=== PATIENT | female | born 1950 | race Caucasian/White ===

== ENCOUNTER 2017-03-19 19:14 | Emergency (ER) | payer MEDICARE ==
[2017-03-19] MEDS ORDERED: traMADol HCl 50 MG TAB ONE (19:56)
--- NOTE | 2017-03-19 22:15 | RAD ---
FOUR VIEWS LEFT ELBOW 03/19/17 HISTORY: Left elbow injury after tripping and falling on a curb. FINDINGS: There is what appears to be a lytic lesion involving the proximal left radial diaphysis which extends to the region of the radial neck. There is no osseous destruction or expansion of the bone in the re gion of this lytic lesion. No additional lytic lesions are seen. There is no acute fracture or disloc ation identified. IMPRESSION: 1. Lytic lesion involving the proximal left radial diaphysis. While the overall length of this l esion without expansion or bone destruction suggests a benign process like fibrous dysplasia, given t he age of the patient, further evaluation with a bone scan is recommended. 2. No acute fracture or dislocation left elbow. POS: [facility]
== END 2017-03-19 21:29 | disposition home or self-care (01) ==
LOC: SCSER 19:14
DX: S50.02XA Contusion of left elbow, initial encounter (principal); E78.5 Hyperlipidemia, unspecified; W01.10XA Fall on same level from slipping, tripping and stumbling with subsequent striking against unspecified object, initial encounter

== ENCOUNTER 2017-06-22 07:54 | Outpatient (CLI) | payer MEDICARE, BC ==
--- NOTE | 2017-06-22 10:44 | MRI ---
MRI LEFT WRIST WITHOUT CONTRAST: Date: 06/22/17 HISTORY: Fall in March 2017, landed on left wrist, having pain. Hearing a popping sound. COMPARISON: None. FINDINGS: Bones: There is edema within the distal ulna, appearing mildly in the ulnar styloid. There is narrowing of t he radiocarpal joint. Positive ulnar variance. There is degenerative disease of the scaphotrapezium and scaphotrapezoidal joint. There are subchondr al cysts of the lunate and triquetrum with cortical thinning. Triangular Fibrocartilage: There is central perforation and maceration of the triangular fibrocartilage. There is subsequent doe ate and ulnar chondromalacia and ulnar carpal arthritis. Tendons: No significant tenosynovitis of the flexor tendons. The extensor carpal ulnaris has mild tenosynoviti s at the level of the ulnar groove with thickened subsheath. Muscles: Normal muscle signal and bulk. IMPRESSION: 1. 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 This is likely cause of patient's pain. 2. Moderate size distal radial ulnar joint effusion. 3. Mild tenosynovitis of extensor carpal ulnaris with thickened of the subsheath, likely chronic tea r. POS: [facility]
== END 2017-06-22 07:55 | disposition home or self-care (01) ==
LOC: SCSMRI 07:54
PROVIDERS: ATTEND Orthopaedic Surgery Hand Surgery
DX: S63.502A Unspecified sprain of left wrist, initial encounter (principal); M25.531 Pain in right wrist; M25.832 Other specified joint disorders, left wrist; M94.232 Chondromalacia, left wrist; M25.432 Effusion, left wrist; M65.9 Synovitis and tenosynovitis, unspecified; M19.032 Primary osteoarthritis, left wrist

== ENCOUNTER 2017-07-17 09:06 | Outpatient (CLI) | payer MEDICARE, BC ==
[2017-07-17 11:07] LABS: #Eosinphils 0.1 thou/uL (0.0-0.7); #Lymphocytes 1.6 thou/uL (1.20-3.40); #Monocytes 0.2 thou/uL (0.11-0.59); #Neutrophils 1.5 thou/uL (1.40-6.50); %Basophils 1.1 % (0.0-1.0); %Eosinophils 2.4 % (0.0-10.0); %Lymphocytes 46.1 % (21.0-51.0); %Monocytes 6.8 % (0.0-10.0); %Neutrophils 43.7 % (42.0-75.0); Hemoglobin 12.6 g/dL (12.0-16.0); Mean Corpuscular HGB CONC 33.5 g/dL (32.0-36.0); Mean Corpuscular Hemoglobin 32.6 pg (27.0-31.0); Mean Corpuscular Volume 97.3 fl (81.0-99.0); Mean Platelet Volume 7.5 fL (7.4-10.4); Platelet Count 226 thou/uL (130-400); RBC Distribution Width 11.1 % (11.5-14.5); Red Blood Cell (RBC) Count 3.86 mill/uL (4.20-5.40); White Blood Cell (WBC) Count 3.4 thou/uL (4.8-10.8)
[2017-07-17 11:18] LABS: Bilirubin Negative (Negative); Blood, Urine Negative (Negative); Clarity CLEAR (Clear); Glucose, Urine (Dipstick) Negative (Negative); Leukocyte Negative (Negative); Nitrite Negative (Negative); Protein, Urine (Dipstick) Negative (Neg-Trace); Specific Gravity, Urine 1.006 (1.002-1.036); Urobilinogen 0.2 mg/dL (0.2-1.0)
[2017-07-17 11:23] LABS: Anion Gap 8 mmol/L (10-20); BUN (Urea Nitrogen) 11 mg/dL (9.8-20.1); Calc. Creatinine Clearance 0 mL/min (70-130); Calcium 9.5 mg/dL (7.8-10.44); Carbon Dioxide 28 mmol/L (23-31); Chloride 110 mmol/L (98-107); Estimated GFR-MDRD 75; Glucose 72 mg/dL (80-115); Potassium 3.6 mmol/L (3.5-5.1); Sodium 142 mmol/L (136-145)
[2017-07-17 11:27] LABS: Bacteria/HPF None Seen HPF (None Seen); Hyaline Casts/LPF 0-3 HYALINE CAST LPF (0-3 Hyaline); RBC/HPF 0-3 HPF (0-3); Squamous Epithelial None Seen HPF (0-3); WBC/HPF None Seen HPF (0-3)
--- NOTE | 2017-07-17 12:26 | RAD ---
TWO VIEWS OF THE CHEST: COMPARISON: None. HISTORY: Preoperative radiograph. FINDINGS: Two views of the chest show normal sized cardiomediastinal silhouette. There is no evidence of consol idation, mass, or pleural effusion. Degenerative changes are seen in the spine. IMPRESSION: No evidence of acute cardiopulmonary disease. POS: [facility]
== END 2017-07-17 09:07 | disposition home or self-care (01) ==
LOC: LABBT 09:06
PROVIDERS: ATTEND Orthopaedic Surgery Hand Surgery
DX: Z01.818 Encounter for other preprocedural examination (principal); S63.599A Other specified sprain of unspecified wrist, initial encounter
CPT/HCPCS: 71046; 80048; 81001; 85025; 93005; 93010

== ENCOUNTER 2017-07-22 08:37 | Outpatient (CLI) | payer MEDICARE, BC ==
--- NOTE | 2017-07-22 13:02 | NM ---
NUCLEAR MEDICINE BONE SCAN WHOLE BODY: (SKELETAL SCINTIGRAPHY) DATE: 07/22/17. HISTORY: A 66-year-old female with osteolytic lesion found in the proximal left radius on radiographic images of the elbow on 03/19/17. TECHNIQUE: IV injection of [id number]: 32 mCi 3 hour delayed whole body skeletal scintigraphy in anterior and posterior views. Additional close-up anterior and posterior views of the left elbow were obtained. FINDINGS: There is a small focus of significantly increased uptake in the left elbow. It does not correspond t o the proximal radial shaft. However, it may correspond to the radial neck. There are no other foci of uptake in the rest of the skeleton that are particularly suspicious for metastatic disease. Ther e is a scoliosis of the thoracic spine. There is increased uptake near the cervicothoracic junction consistent with spondylosis. There is increased uptake in the left knee consistent with osteoarthros is. There is a photopenic defect in the right knee consistent with metallic hardware. IMPRESSION: 1. No areas in the skeleton are particularly suspicious for osseous metastases. 2. Small focus of significantly increased uptake in the left elbow. The etiology of this is uncerta in. The location does not exactly match that of the lucency found on the radiographic images, but it may involve a portion of it. Therefore, further evaluation beginning with repeat 4-view radiograph of the left elbow is recommended(since the original study was 4 months ago). Also, MRI of the left e lbow with and without contrast should be considered. 3. Osteoarthrosis of the left knee. 4. Status post total right knee replacement arthroplasty. [facility] POS: OFF
== END 2017-07-22 08:38 | disposition home or self-care (01) ==
LOC: NM 08:37
PROVIDERS: ATTEND Orthopaedic Surgery Hand Surgery
DX: M17.12 Unilateral primary osteoarthritis, left knee (principal); R94.8 Abnormal results of function studies of other organs and systems; Z96.651 Presence of right artificial knee joint
CPT/HCPCS: 78306; A9503

== ENCOUNTER 2017-07-28 09:36 | Observation (INO) | payer MEDICARE, BC ==
[2017-07-28] MEDS ORDERED: CEFAZOLIN/Water 2 GM/20 ML SYRINGE ONE (11:55)
[2017-07-28] MEDS ORDERED: EPINEPHrine 1 MG/ML AMP ONE (12:39)
[2017-07-28] MEDS ORDERED: Bupivacaine PF 0.5% 30 ML VIAL ONE (12:39)
[2017-07-28] MEDS ORDERED: Bacitracin Zinc Ointment 30 gm TUBE ONE (12:39)
[2017-07-28] MEDS ORDERED: Fentanyl 100 MCG/2 ML VIAL ONE ×3 (12:44→18:04)
[2017-07-28] MEDS ORDERED: PROPOFOL 200 MG/20 ML VIAL ONE (13:42)
[2017-07-28] MEDS ORDERED: PHENYLEPHRINE-NS 100 MCG/ML 10 ML SYRINGE ONE (13:42)
[2017-07-28] MEDS ORDERED: Lidocaine 1% PF 5 ML VIAL ONE (13:42)
[2017-07-28] MEDS ORDERED: Succinylcholine Chloride 20 MG/ML 10 ml SYRINGE FS ONE (13:42)
[2017-07-28] MEDS ORDERED: ePHEDrine/0.9% NaCl/PF SYRINGE 50 mg/10 ml ONE (13:42)
[2017-07-28] MEDS ORDERED: Ondansetron HCl/PF 4 MG/2 ML Vial IVP PRN (16:52)
[2017-07-28] MEDS ORDERED: Promethazine HCl 25 MG/ML VIAL SLOW IVP PRN (16:52)
[2017-07-28] MEDS ORDERED: Promethazine HCl 25 MG/ML VIAL IM PRN ×2 (16:52→17:43)
[2017-07-28] MEDS ORDERED: HYDROcodone/Acetaminophen 5/325 mg Tablet PO PRN (17:43)
[2017-07-28] MEDS ORDERED: Ondansetron HCl/PF 4 MG/2 ML Vial IV PRN (17:43)
[2017-07-28] MEDS ORDERED: Morphine 4 MG/ML VIAL SLOW IVP PRN (17:43)
[2017-07-28] MEDS ORDERED: Bisacodyl 10 MG SUPP PR PRN (17:43)
[2017-07-28] MEDS ORDERED: Fentanyl 100 MCG/2 ML VIAL SLOW IVP PRN (17:43)
[2017-07-28] MEDS ORDERED: Milk Of Magnesia 30 ML UDCUP PO PRN (17:43)
[2017-07-28] MEDS ORDERED: Communication Order-Pharmacy FS SCH (17:45)
[2017-07-28] MEDS ORDERED: TETANUS AND DIPHTHERIA TOX/PF 0.5 ML DISP.SYRIN IM SCH (17:45)
--- NOTE | 2017-07-28 17:54 | RAD ---
INTRAOPERATIVE IMAGING OF THE LEFT FOREARM 07/28/17 COMPARISON: None. HISTORY: Distal ulnar fracture. FINDINGS: Four intraoperative images are provided, demonstrating postoperative hardware associated with the dis heidi left ulna. IMPRESSION: Distal left ulnar ORIF. POS: [facility]
[2017-07-28] MEDS: Ketorolac Tromethamine 30 MG/ML VIAL IVP SCH (19:20)
[2017-07-28] MEDS: traMADol HCl 50 MG TAB PO PRN (19:20)
[2017-07-28] MEDS: Aspirin 81 mg Enteric Coated Tablet PO SCH (21:46)
[2017-07-28] MEDS: Vancomycin HCl 1 GM in Premix Bag 1 BAG IVPB SCH (21:46)
[2017-07-29] MEDS: Ketorolac Tromethamine 30 MG/ML VIAL IVP SCH ×3 (00:47→11:21)
[2017-07-29] MEDS: traMADol HCl 50 MG TAB PO PRN ×2 (00:47→06:09)
[2017-07-29] MEDS: Vancomycin HCl 1 GM in Premix Bag 1 BAG IVPB SCH (08:42)
[2017-07-29] MEDS: Aspirin 81 mg Enteric Coated Tablet PO SCH (08:42)
[2017-07-29] MEDS ORDERED: Prevnar 13-Val Conj/PF 0.5 ML SYRINGE IM ONE (09:00)
[2017-07-29 12:14] VITALS: TEMP 98.4
[2017-07-29 16:08] VITALS: BP 108/68
--- NOTE | 2017-07-30 13:58 | OP ---
DATE OF SURGERY: 07/28/2017 PREOPERATIVE DIAGNOSES: 1. Left ulnocarpal impingement. 2. Left triangular fibrocartilage tear. 3. Left ulnar osteophyte, both ulnar dorsal, ulnar direct lateral, and ulnar volar and deep to the d orsal joint. POSTOPERATIVE DIAGNOSES: 1. Left ulnocarpal impingement. 2. Left triangular fibrocartilage tear. 3. Left ulnar osteophyte, both ulnar dorsal, ulnar direct lateral, and ulnar volar and deep to the d orsal joint. FINDINGS: A 60% triangular fibrocartilage central tear with degeneration, but no evidence of lunate triquetral ligament tear or instability. Definitely had some early ulnar chondromalacia with protrus ion and ulnocarpal impingement seen by chondritis over the most ulnar aspect of the lunate. ESTIMATED BLOOD LOSS: 100 mL. TOURNIQUET TIME: 91 minutes. PROCEDURES PERFORMED: 1. Triangular fibrocartilage arthroscopic debridement and resection for tear. 2. Joint synovectomy, complete arthroscopically. 3. Left Rayhack technique, ulnar shortening osteotomy. 4. C-arm supervision. 5. Open tenosynovectomy. 6. Open osteophyte excision, only in the places described above. INDICATIONS: The patient had pain over the ulnar carpal joint with positive clinical and MRI history of triangular fibrocartilage degenerative type 2 tear. Ulnocarpal impingement suspected and confirm ed intraoperatively. DESCRIPTION OF PROCEDURE: After successful endotracheal anesthesia by [facility], the limb prepped and draped. The arm was placed in the standard inline traction arm suárez given approximatel y 10 to 11 pounds of traction force. It was well stable. We established, after outlined, the 3-4, the 6U and 6R portals. We began by placing fluid in the 3-4 portal and established and visualization through the radial portal. that we sa w minimal synovitis, but it was present, so a synovectomy performed throughout the entire wrist, alte rnating between working portals, radial and ulnar. After this, then we were able to visualize the large triangular fibrocartilage tear where almos t 60% of the surface was torn. was established all around with no defects on the rim edge, we saw no ligament tear, visualized a small amount of chondromalacia through ulnar edge of the lunate, but there was no triquetral ligament tear instability. There were no degenerative changes seen neith er at this joint. After we did a chondroplasty arthroscopic of the lunate and we saw there was ulnoc arpal impingement to the defect, we decided to do ulnar shortening. We removed the arthroscope, we could not visualize any of the degenerative changes, osteophytes of th e ulna, so we then inflated tourniquet exsanguination of limb to 250 mmHg pressure. incision used for the 6 portal was established, 1.5 cm distal and 1 cm to skin, subcutaneous tissue. We identified the dorsal ulnar osteophytes to protect the superficial ulnar nerve branches and removed them. We could not identify the deep palm wounds, and so at this point, we elected to treat this onc e this was sought through with ulnar shortening osteotomy as it would ulnocarpal impingement. The patient now had ostectomy x2 over the distal ulna completed. We closed this incision first by re pairing some of the distal radioulnar joint inferior fibers with a 3-0 Prolene interrupted mattress p attern. The patient then had the skin closed, reinflated tourniquet, after completing the procedure of the distal radioulnar joint and distal ulna osteectomies. A curvilinear incision was then made zigzag directly over the mid lateral ulnar head, skin, and subcu taneous tissue released the fascia in the midline, elevated the muscle off the ridge to place retract ion. We identified performed the ulnar ostectomy, placed the Rayhack cut guide in place and us ed drill tap. Once this was completed, we then visualized the osteotomy site and placed the R carmenhack cut guide with 3 holes proximal, used standard drill measure tap screw using 2.7 screws, we th en established 4 screw in the shaft. At this point, we then replaced this with the cut guide p laced the screw appropriate 1, 2, 3, and then the 4th screw in appropriate holes, had excellent fill of purchase. The patient now had 2 mm wafer removed, the final plate was used, 2.7 screw was placed in position using the same 1, 2, 3 and 4 screws, and this time we placed the retractor device at appr opriate length for the size of the cut in the shaft, one proximal to the superior cut and one not. A t this point, we retightened each side until we had a flat even surface. The patient now had t ourniquet deflated for the last time, obtained hemostasis, and then began closure by first closing th e fascia over the plate, as the plate was slightly more volar than direct lateral using a running 2-0 Vicryl. We then closed subcutaneous tissue at this moment with a running 4-0 Monocryl and then foll owed this with a running 5-0 nylon. The patient then left the operating room in a bulky dressing, ap propriate ulnar gutter wrist splint without evidence of anesthetic or operative complication.
== END 2017-07-29 16:36 | disposition home or self-care (01) ==
LOC: SDC 09:36 → SURG A 17:43
PROVIDERS: ADMIT Orthopaedic Surgery Hand Surgery; ATTEND Orthopaedic Surgery Hand Surgery
PROC: 0RBP4ZZ Excision of Left Wrist Joint, Percutaneous Endoscopic Approach (ICD-10-PCS; principal; 2017-07-28)
PROC: 0PB Upper Bones, Excision (ICD-10-PCS; 2017-07-28)
DX: S63.599A Other specified sprain of unspecified wrist, initial encounter (principal); M25.832 Other specified joint disorders, left wrist; M25.732 Osteophyte, left wrist; M94.232 Chondromalacia, left wrist; E78.00 Pure hypercholesterolemia, unspecified; M46.92 Unspecified inflammatory spondylopathy, cervical region; Z79.82 Long term (current) use of aspirin; Z79.899 Other long term (current) drug therapy; Z88.5 Allergy status to narcotic agent; Z96.661 Presence of right artificial ankle joint
CPT/HCPCS: 25390; 29846; 73090; 76001; 88307; 90670; 96365; 96366; 96374; 96375; 96376; C1713; G0009; G0378; 90471; J0171; J1885; J2001; J2704; J3010; J3370; S0020

== ENCOUNTER 2018-07-20 08:07 | Outpatient (CLI) | payer MEDICARE, BC ==
--- NOTE | 2018-07-28 16:17 | MMO ---
Bilateral MAMMO Bilat Screen [facility]. CLINICAL HISTORY: Patient is 67 years old and is seen for screening. The patient has no family history of breast cancer. The patient has no personal history of cancer. VIEWS: The views performed were: bilateral craniocaudal and bilateral mediolateral oblique. FILMS COMPARED: The present examination has been compared to prior imaging studies performed at [facility] on 03/29/2015, 03/31/2016 and 03/31/2017. This study has been interpreted with the assistance of computer-aided detection. MAMMOGRAM FINDINGS: There are scattered fibroglandular densities. There are benign appearing calcifications seen in the right breast. There are no suspicious masses, suspicious calcifications, or new areas of architectural distortion. IMPRESSION: THERE IS NO MAMMOGRAPHIC EVIDENCE OF MALIGNANCY. A ROUTINE FOLLOW-UP MAMMOGRAM IN 1 YEAR IS RECOMMENDED. ACR BI-RADS Category 2 - Benign finding MAMMOGRAPHY NOTE: 1. A negative mammogram report should not delay a biopsy if a dominant of clinically suspicious mass is present. 2. Approximately 10% to 15% of breast cancers are not detected by mammography. 3. Adenosis and dense breasts may obscure an underlying neoplasm.
== END 2018-07-20 08:08 | disposition home or self-care (01) ==
LOC: SCSMAMMO 08:07
PROVIDERS: ATTEND Family Medicine
DX: Z12.31 Encounter for screening mammogram for malignant neoplasm of breast (principal)
CPT/HCPCS: 77067

== ENCOUNTER 2022-09-10 13:49 | Outpatient (CLI) | payer MEDICARE, OTHER | END 2022-09-10 13:50 | disposition home or self-care (01) | LOC: SCSMRI 13:49 | PROVIDERS: ATTEND Anesthesiology Pain Medicine | DX: M50.122 Cervical disc disorder at C5-C6 level with radiculopathy (principal) | CPT/HCPCS: 72141 ==